=== PATIENT | female | born 1990 | race Asian ===

== ENCOUNTER 2023-03-28 11:25 | Inpatient (IN) | payer BC ==
[2023-03-28] MEDS: ELECTROLYTE-148 SOLN 1,000 ML IV SCH (13:30)
[2023-03-28 13:58] VITALS: BMI 29.0
[2023-03-28] MEDS ORDERED: ELECTROLYTE-148 SOLN 1,000 ML IV SCH (14:15)
[2023-03-28] MEDS ORDERED: AMPICILLIN SODIUM 2 GM VIAL ONE (14:24)
[2023-03-28] MEDS ORDERED: SODIUM CHLORIDE 100 ML IVPB ONE ×2 (14:24→18:39)
[2023-03-28] MEDS ORDERED: OXYTOCIN 30 UNITS in 0.9% NS 30 UNIT/500 ML INFUS.BAG IVPB ONE (14:24)
[2023-03-28 14:42] LABS: BASO % 0.5 % (0-2.0); EOS % 0.1 % (0-4.5); HEMATOCRIT 28.2 % (32.4-45.2); HEMOGLOBIN 8.9 GM/dL (10.7-15.3); LYMPH % 15.2 % (8-40); MCH 21.6 pg (25.7-33.7); MCHC 31.4 g/dl (32.0-36.0); MEAN CELL VOLUME 68.8 fl (80-96); MEAN PLT VOLUME 8.2 fl (7.5-11.1); MONO % 4.8 % (3.8-10.2); NEUT % 79.4 % (42.8-82.8); PLATELET COUNT 207 10^3/uL (134-434); RDW 16.7 % (11.6-15.6); WHITE BLOOD COUNT 10.6 K/mm3 (4.0-10.0)
[2023-03-28 14:48] LABS: INR 0.99 (0.83-1.09); PROTHROMBIN TIME (PATIENT) 11.5 SEC (9.7-13.0)
[2023-03-28] MEDS: AMPICILLIN - 2 GM in SODIUM CHLORIDE 100 ML IVPB ONE (14:49)
[2023-03-28 14:50] LABS: ACTIVATED PTT 24.4 SECONDS (25.2-36.5)
[2023-03-28] MEDS: OXYTOCIN 30 UNITS in 0.9% NS 30 UNIT/500 ML INFUS.BAG IVPB SCH (14:50)
[2023-03-28 15:15] LABS: ANISOCYTOSIS 3+; MACROCYTOSIS 0
[2023-03-28 15:34] LABS: POTASSIUM 4.3 mmol/L (3.5-5.1)
[2023-03-28 15:37] LABS: CALCIUM 8.2 mg/dL (8.5-10.1)
[2023-03-28 15:38] LABS: BLOOD UREA NITROGEN 8.7 mg/dL (7-18)
[2023-03-28 15:41] LABS: CREATININE 0.7 mg/dL (0.55-1.3)
[2023-03-28 16:04] LABS: HIV INTERPRETATION NEGATIVE (NEGATIVE)
[2023-03-28] MEDS: DEXTROSE 5%-LACTATED RINGERS 1,000 ML IV SCH (16:30)
[2023-03-28] MEDS ORDERED: AMPICILLIN SODIUM 1 GM VIAL ONE ×2 (18:39→21:48)
[2023-03-28] MEDS: AMPICILLIN - 1 GM in SODIUM CHLORIDE 100 ML IVPB SCH (18:52)
[2023-03-28] MEDS ORDERED: FENTANYL/BUPIVACAINE/NS/PF - PCEA - 50 ML DISP.SYRIN EP ONE (19:50)
[2023-03-28] MEDS ORDERED: FENTANYL CITRATE/PF 50 MCG/ML VIAL ONE (19:58)
[2023-03-28] MEDS: FENTANYL/BUPIVACAINE/NS/PF - PCEA - 50 ML DISP.SYRIN EP SCH (20:35)
[2023-03-28] MEDS ORDERED: NALOXONE HCL 0.4 MG/ML VIAL IVPUSH PRN (20:47)
[2023-03-28] MEDS: DEXTROSE 5%-LACTATED RINGERS 500 ML IV ONE (22:39)
[2023-03-29] MEDS ORDERED: ONDANSETRON 4 MG/2 ML VIAL ONE (02:50)
[2023-03-29] MEDS ORDERED: AMPICILLIN SODIUM 1 GM VIAL ONE ×2 (02:50→06:49)
[2023-03-29] MEDS: ONDANSETRON 4 MG/2 ML VIAL IVPUSH ONE (03:00)
[2023-03-29] MEDS ORDERED: FENTANYL/BUPIVACAINE/NS/PF - PCEA - 50 ML DISP.SYRIN EP ONE ×2 (03:41)
[2023-03-29] MEDS ORDERED: OXYTOCIN 20 UNITS in 0.9% NS 20 UNIT/1,000 ML INFUS.BAG IV ONE (03:51)
[2023-03-29] MEDS: OXYTOCIN 20 UNITS in 0.9% NS 20 UNIT/1,000 ML INFUS.BAG IV SCH (07:53)
[2023-03-29] MEDS ORDERED: BENZOCAINE 28 GM HEMORRHOIDAL OINTMENT TP PRN (08:42)
[2023-03-29] MEDS ORDERED: METHYLERGONOVINE MALEATE 0.2 MG/1 ML AMP IM PRN (08:42)
[2023-03-29] MEDS ORDERED: oxyCODONE HCL 5 MG TABLET PO PRN (08:42)
[2023-03-29] MEDS ORDERED: BENZOCAINE 20% 57 GM BOTTLE TP PRN (08:42)
[2023-03-29] MEDS ORDERED: BISACODYL 10 MG SUPP.RECT RC PRN (08:42)
[2023-03-29] MEDS ORDERED: ACETAMINOPHEN 325 MG TABLET (FP) PO PRN (08:42)
[2023-03-29] MEDS ORDERED: FERROUS SO4 325 MG TABLET (FP) ONE (09:48)
[2023-03-29] MEDS ORDERED: PRENATAL VITAMINS W/ FOLIC ACID TABLET (FP) PO ONE (09:48)
[2023-03-29] MEDS: PRENATAL VITAMINS W/ FOLIC ACID TABLET (FP) PO SCH (09:50)
[2023-03-29] MEDS: FERROUS SO4 325 MG TABLET (FP) PO SCH (09:50)
[2023-03-29] MEDS: WITCH HAZEL 50% (TUCKS) 40 PAD/JAR PAD TP PRN (10:00)
[2023-03-29] MEDS ORDERED: IBUPROFEN 600 MG TABLET (FP) PO ONE (11:03)
[2023-03-29] MEDS: IBUPROFEN 600 MG TABLET (FP) PO PRN (11:08)
[2023-03-30 09:34] LABS: BASO % 0.2 % (0-2.0); EOS % 0.7 % (0-4.5); HEMATOCRIT 25.1 % (32.4-45.2); HEMOGLOBIN 8.1 GM/dL (10.7-15.3); LYMPH % 17.5 % (8-40); MCHC 32.2 g/dl (32.0-36.0); MEAN CELL VOLUME 68.3 fl (80-96); MEAN PLT VOLUME 8.6 fl (7.5-11.1); NEUT % 76.6 % (42.8-82.8); PLATELET COUNT 191 10^3/uL (134-434); RBC 3.68 M/mm3 (3.60-5.2); RDW 16.7 % (11.6-15.6); WHITE BLOOD COUNT 13.3 K/mm3 (4.0-10.0)
[2023-03-30 13:23] LABS: POC NITRAZINE NEG
[2023-03-30 13:23] LABS: POC NITRAZINE POS
[2023-03-30] MEDS: SENNOSIDES/DOCUSATE COMBO (SENNA PLUS) TABLET (UD) PO PRN (22:27)
[2023-03-31 01:35] VITALS: PULSE 84; RESP 16
[2023-03-31 10:21] VITALS: BP 104/77; TEMP 98
== END 2023-03-31 11:34 | disposition home or self-care (01) | DRG 807 ==
LOC: JDEL 11:25 → JLDR 13:10 → J3W 03-29 13:32
PROVIDERS: ADMIT Obstetrics & Gynecology; ATTEND Obstetrics & Gynecology
PROC: 10E0XZZ Delivery of Products of Conception, External Approach (ICD-10-PCS; principal; 2023-03-29)
PROC: 0W8NXZZ Division of Female Perineum, External Approach (ICD-10-PCS; 2023-03-29)
DX: O42.02 Full-term premature rupture of membranes, onset of labor within 24 hours of rupture (principal); Z37.0 Single live birth; Z3A.40 40 weeks gestation of pregnancy
CPT/HCPCS: 36415; 80048; 83986-QW; 85025; 85610; 85730; 86780; 86850; 86900; 86901; 87389